=== PATIENT | male | born 1975 | race African-American/Black ===

== ENCOUNTER 2023-06-15 02:15 | Emergency (ER) | payer OTHER ==
[~2023-06-15] VITALS: Ht 182.9 cm; Wt 82.0 kg
[~2023-06-15 02:15] MED LIST: ASPI-1406 MT; ATOR40TA70 MT; ERTU5TAB PO; LANTUSUD SUBCUT; LISI10TA26 PO; METF-415 MT; METO25TA6 MT; SERT-422 MT
[2023-06-15 02:26] VITALS: TEMP 98.4; O2SAT 96
[2023-06-15] MEDS ORDERED: METHOCARBAMOL 500MG TABLET PO ONE (04:00)
[2023-06-15] MEDS ORDERED: KETOROLAC 30MG/ML VIAL IM ONE (04:00)
[2023-06-15] MEDS ORDERED: ONDANSETRON HCL 4MG/2ML INJ IM ONE (05:00)
[2023-06-15] MEDS ORDERED: LIDOCAINE HCL 1% 20ML VIAL (Pyxis) INJ INFIL ONE (06:00)
[2023-06-15] MEDS ORDERED: IBUP-2029 MT (06:42)
[2023-06-15] MEDS ORDERED: KETOROLAC 30MG/ML VIAL IM NR (08:45)
[2023-06-15] MEDS ORDERED: METHOCARBAMOL 500MG TABLET PO NR (08:45)
[2023-06-15 09:52] VITALS: BP 149/85; PULSE 110; RESP 16
== END 2023-06-15 09:55 | disposition home or self-care (01) ==
LOC: ER 02:15
DX: S01.511A Laceration without foreign body of lip, initial encounter (principal); F12.10 Cannabis abuse, uncomplicated; E11.9 Type 2 diabetes mellitus without complications; Y04.0XXA Assault by unarmed brawl or fight, initial encounter; Y93.89 Activity, other specified; Y92.89 Other specified places as the place of occurrence of the external cause; Y99.8 Other external cause status
CPT/HCPCS: 73590; 73610; 73630; 70450; 70486; 12011; 96372; 99285; J1885; Z7610

== ENCOUNTER 2023-06-19 08:57 | Emergency (ER) | payer OTHER ==
[~2023-06-19] VITALS: Ht 172.7 cm; Wt 82.0 kg
[~2023-06-19 08:57] MED LIST changes: +IBUP-2029 MT
[2023-06-19 09:16] VITALS: BP 143/95; RESP 16; TEMP 98.9; O2SAT 99
[2023-06-19 09:21] VITALS: PULSE 105
[2023-06-19] MEDS ORDERED: BACITRACIN ZINC OINT UDPKT TOP ONE (10:45)
== END 2023-06-19 11:21 | disposition home or self-care (01) ==
LOC: ER 08:57
DX: S02.31XA Fracture of orbital floor, right side, initial encounter for closed fracture (principal); E11.9 Type 2 diabetes mellitus without complications; F12.10 Cannabis abuse, uncomplicated; Y08.89XA Assault by other specified means, initial encounter; Y93.89 Activity, other specified; Y92.89 Other specified places as the place of occurrence of the external cause; Y99.8 Other external cause status; Z79.899 Other long term (current) drug therapy
CPT/HCPCS: 99282